=== PATIENT | male | born 1990 | race Caucasian/White ===

== ENCOUNTER 2018-02-25 07:59 | Emergency (ER) | payer MEDICAID ==
--- NOTE | 2018-02-25 08:40 | ED Physician Chart ---
ED Chief Complaint/HPI - Patient Information Date Seen:: 02/25/18 Time Seen:: 08:34 Chief Complaint:: rt sided upper rib cage pain History of Present Illness:: 28 yr old male with asthma cough and phlegm trying to cough it up with pain rt upper rib cage area hx of same with pulled muscle rib cage according to the mom no fever no cp no abd pain no n,v,d or constipation he has hx of asthma and the inhalers etc not working well pain is worse with coughing and deep breathing. Allergies:: Allergies Allergy/AdvReac Type Severity Reaction Status Date / Time naproxen [From Aleve] Allergy Verified 02/25/18 08:07 Vitals:: Vital Signs - 8 hr 02/25/18 08:07 Temp 97.0 F HR 97 RR 18 BP 143/93 O2 Sat % 95 Historian:: Patient, Family Member (mom) ED Review of Systems - Review of Systems General/Constitutional: No fever, No chills, No weight loss, No weakness, No diaphoresis, No edema, No loss of appetite Skin: No skin lesions, No rash, No bruising Head: No headache, No light-headedness Eyes: No loss of vision, No pain, No diplopia ENT: No earache, No nasal drainage, No sore throat, No tinnitus Neck: No neck pain, No swelling, No thyromegaly, No stiffness, No mass noted Cardio Vascular: No chest pain, No palpitations, No PND, No orthopnea, No edema Pulmonary: No SOB, No cough, No sputum, No wheezing GI: No nausea, No vomiting, No diarrhea, No pain, No melena, No hematochezia, No constipation, No hematemesis G/U: No dysuria, No frequency, No hematuria Musculoskeletal: Other (rt sided rib cage scapular pain with deep breathing) Endocrine: No polyuria, No polydipsia Psychiatric: No prior psych history, No depression, No anxiety, No suicidal ideation Hematopoietic: No bruising, No lymphadenopathy Allergic/Immuno: No urticaria, No angioedema Neurological: No syncope, No focal symptoms, No weakness, No paresthesia, No headache, No seizure, No dizziness, No confusion, No vertigo ED Past Medical History - Past Medical History Past Medical History: Asthma/COPD Social History: Non Smoker ED Physical Exam - Physical Examination Other Respiratory comments:: rt sided rib cage pain with deep breathing mild rhonchi occas wheeze Misc: No paraspinal tenderness Other:: tenderness rt rib cage area ED Assessment - Assessment General Assessment: sided rib cage tend with deep breathing ED Septic Shock - . Is Septic Shock (SBP<90, OR Lactate>4 mmol\L) present?: No - <6hrs of presentation: Vital Signs: Vital Signs - 8 hr 02/25/18 08:07 Temp 97.0 F HR 97 RR 18 BP 143/93 O2 Sat % 95 ED Reassessment (Disposition) - Reassessment Reassessment Condition:: Unchanged - Diagnosis Diagnosis:: rt sided upper chest wall pain and bronchitis
[2018-02-25 08:52] LABS: % BASOPHILS 0.7 % (0.0-2.0); % EOSINOPHILS 1.8 % (0.0-5.0); % LYMPHOCYTES 18.8 % (20.0-50.0); % MONOCYTES 3.6 % (2.0-10.0); % NEUTROPHILS 75.1 % (40.0-80.0); BASOPHILE ABSOLUTE 0.1 Th/cumm (0-0.2); EOSINOPHILE ABSOLUTE 0.2 Th/cmm (0.1-0.4); HEMATOCRIT 46.9 % (41.0-60); HEMOGLOBIN 15.7 gm/dL (12-16); LYMPHOCYTE ABSOLUTE 2.4 Th/cmm (1.5-3.0); MEAN CORPUSCULAR HEMOGLOBIN 28.1 pg (26.0-30.0); MEAN CORPUSCULAR HGB CONC 33.5 pg (28.0-36.0); MEAN PLATELET VOLUME 8.5 fl; MONOCYTE ABSOLUTE 0.5 Th/cmm (0.3-1.0); NEUTROPHILE ABSOLUTE 9.6 Th/cmm (1.8-8.0); PLATELET COUNT 281 Th/cmm (150-400); RED BLOOD COUNT 5.58 Mil/cmm (4.30-5.70); RED CELL DISTRIBUTION WIDTH 13.5 % (11.5-20.0)
[2018-02-25 08:54] LABS: WHITE BLOOD COUNT 12.8 Th/cmm (4.8-10.8)
[2018-02-25] MEDS ORDERED: Sodium Chloride 0.9% 1,000 ML IV ONE (09:01)
[2018-02-25 09:03] LABS: ALBUMIN 3.9 gm/dL (4.2-5.5); ALKALINE PHOSPHATASE 82 U/L (34-104); ANION GAP 13.5 (7.0-16.0); BILIRUBIN,TOTAL 0.8 mg/dL (0.3-1.0); BUN - UREA NITROGEN 13 mg/dL (7-25); CALCIUM SERUM 9.1 mg/dL (8.6-10.3); CARBON DIOXIDE 20.9 mEq/L (21.0-31.0); CHLORIDE 107 mEq/L (98-107); CREATININE - SERUM 0.9 mg/dL (0.7-1.3); GFR AFRICAN-AMERICAN > 60.0 ml/min (>90); GFR NON AFRICAN-AMERICAN > 60.0 ml/min; GLUCOSE 133 mg/dL (70-105); POTASSIUM SERUM 3.4 mEq/L (3.5-5.1); SGOT 13 U/L (13-39); SGPT/ALT 15 U/L (7-52); SODIUM SERUM 138 mEq/L (136-145); TOTAL PROTEIN,SERUM 7.7 gm/dL (6.0-8.3)
[2018-02-25] MEDS ORDERED: Dexamethasone Sodium Phos 4 mg/mL Vial INH STA (09:05)
[2018-02-25] MEDS ORDERED: Albuterol/Ipratropium Neb 3 ML AERS HHN ONE ×4 (09:05→10:30)
[2018-02-25 09:07] LABS: INR 0.99 (0.5-1.4); PROTHROMBIN TIME (TEST) 10.3 SECONDS (9.5-11.5)
[2018-02-25] MEDS ORDERED: Albuterol Nebulizer 2.5mg/3mL HHN ONE (09:11)
[2018-02-25] MEDS ORDERED: Potassium Chloride 20 mEq ER Tab PO ONE ×2 (09:11→09:32)
[2018-02-25 09:30] LABS: URINE MICROSCOPIC INDICATED? YES; URINE SOURCE CLEAN C
[2018-02-25 09:37] LABS: URINE BILIRUBIN NEGATIVE (NEGATIVE); URINE BLOOD NEGATIVE (NEGATIVE); URINE GLUCOSE (UA) NEGATIVE (NEGATIVE); URINE KETONE NEGATIVE (NEGATIVE); URINE LEUKOCYTE ESTERASE NEGATIVE (NEGATIVE); URINE NITRATE NEGATIVE (NEGATIVE); URINE PROTEIN NEGATIVE (NEGATIVE); URINE UROBILINOGEN 0.2 E.U./dL (0.2 - 1.0)
[2018-02-25 09:38] LABS: URINE CLARITY CLEAR (CLEAR); URINE COLOR YELLOW
[2018-02-25 09:48] LABS: URINE BACTERIA FEW /hpf (NONE SEEN); URINE EPITHELIAL CELLS OCCASIONAL /lpf (FEW); URINE RBC NONE SEEN /hpf (0-5); URINE WBC 0-2 /hpf (0-5)
[2018-02-25] MEDS ORDERED: Dexamethasone Sodium Phos 4 mg/mL Vial ONE (10:01)
--- NOTE | 2018-02-25 10:19 | Diagnostic Imaging Report ---
Chest x-ray 2 views HISTORY: Pain COMPARISON: None The overall heart size is normal. No focal pulmonary processes. No hilar or mediastinal abnormalities. IMPRESSION: No acute abnormalities.
== END 2018-02-25 11:16 | disposition home or self-care (01) ==
LOC: ER 07:59
DX: J40 Bronchitis, not specified as acute or chronic (principal); R07.89 Other chest pain; J45.909 Unspecified asthma, uncomplicated; J44.9 Chronic obstructive pulmonary disease, unspecified; Z88.8 Allergy status to other drugs, medicaments and biological substances
CPT/HCPCS: 99285; 96365; 71046; 36415; 83605 ×2; 85025; 85610; 81001; 80053; 87040; J2543; J1100; J7030; J7613

== ENCOUNTER 2018-03-19 07:40 | Inpatient (IN) | payer MEDICAID ==
[2018-03-19] MEDS ORDERED: Sodium Chloride 0.9% 1,000 ML IV ONE (07:45)
[2018-03-19 08:09] LABS: % BASOPHILS 0.5 % (0.0-2.0); % EOSINOPHILS 2.1 % (0.0-5.0); % MONOCYTES 6.4 % (2.0-10.0); BASOPHILE ABSOLUTE 0.1 Th/cumm (0-0.2); EOSINOPHILE ABSOLUTE 0.3 Th/cmm (0.1-0.4); HEMATOCRIT 47.5 % (41.0-60); HEMOGLOBIN 15.7 gm/dL (12-16); LYMPHOCYTE ABSOLUTE 2.8 Th/cmm (1.5-3.0); MEAN CELL VOLUME 84.6 fl (80-99); MEAN CORPUSCULAR HEMOGLOBIN 27.9 pg (26.0-30.0); MEAN PLATELET VOLUME 8.4 fl; MONOCYTE ABSOLUTE 0.8 Th/cmm (0.3-1.0); NEUTROPHILE ABSOLUTE 8.5 Th/cmm (1.8-8.0); PLATELET COUNT 259 Th/cmm (150-400); RED BLOOD COUNT 5.62 Mil/cmm (4.30-5.70); RED CELL DISTRIBUTION WIDTH 14.2 % (11.5-20.0); WHITE BLOOD COUNT 12.5 Th/cmm (4.8-10.8)
[2018-03-19] MEDS ORDERED: IOHEXOL 300mgI/mL 100 ML VIAL ONE (08:13)
--- NOTE | 2018-03-19 08:22 | ED Physician Chart ---
ED Chief Complaint/HPI - Patient Information Date Seen:: 03/19/18 Time Seen:: 08:00 Chief Complaint:: RIGHT UPPER QUADRANT PAIN History of Present Illness:: THIS IS A 28 YO OBESE MALE WITH RIGHT UPPER QUADRANT PAIN, NAUSEA, VOMITING BUT NO DIARRHEA. HE HAS HAD THIS SAME PAIN IN THE PAST. HE DENIES HYPERTENSION, DIABETES AND HEART DISEASE. HE DRINKS ALCOHOL OCCASIONALLY AND SMOKE THC OCCASIONALLY. HE DENIES HAVING ANY PREVIOUS ABDOMINAL SURGERIES. Allergies:: Allergies Allergy/AdvReac Type Severity Reaction Status Date / Time naproxen [From Aleve] Allergy Verified 02/25/18 08:07 Vitals:: Vital Signs - 8 hr 03/19/18 07:50 Temp 98.3 F HR 85 RR 21 BP 152/91 O2 Sat % 97 Historian:: Patient, Family Member (MOTHER) Review:: Nurse's Note Reviewed, Old Chart Reviewed ED Review of Systems - Review of Systems General/Constitutional: No fever, No chills, No weight loss, No weakness, No diaphoresis, No edema, No loss of appetite Skin: No skin lesions, No rash, No bruising Head: No headache, No light-headedness Eyes: No loss of vision, No pain, No diplopia ENT: No earache, No nasal drainage, No sore throat, No tinnitus Neck: No neck pain, No swelling, No thyromegaly, No stiffness, No mass noted Cardio Vascular: No chest pain, No palpitations, No PND, No orthopnea, No edema Pulmonary: No SOB, No cough, No sputum, No wheezing GI: Nausea, Vomiting, No diarrhea, Pain (RIGHT UPPER QUADRANT PAIN.), No melena , No hematochezia, No constipation, No hematemesis G/U: No dysuria, No frequency, No hematuria Musculoskeletal: No bone or joint pain, No back pain, No muscle pain Endocrine: No polyuria, No polydipsia Psychiatric: No prior psych history, No depression, No anxiety, No suicidal ideation Hematopoietic: No bruising, No lymphadenopathy Allergic/Immuno: No urticaria, No angioedema Neurological: No syncope, No focal symptoms, No weakness, No paresthesia, No headache, No seizure, No dizziness, No confusion, No vertigo ED Past Medical History - Past Medical History Obtainable: Yes Past Medical History: No significant medical hx Family History: None Social History: Smoker, Alcohol, No Drug Use, Single Surgical History: None Psychiatricy History: None Medication: Reviewed ED Physical Exam - Physical Examination General/Constitutional: Awake, Well-developed, well-nourished, Alert, No distress, GCS 15, Non-toxic appearing, Ambulatory Head: Atraumatic Eyes: Lids, conjuctiva normal, PERRL, EOMI Skin: Nl inspection, No rash, No skin lesions, No ecchymosis, Well hydrated, No lymphadenopathy ENMT: External ears, nose nl, Nasal exam nl, Lips, teeth, gums nl Neck: Nontender, Full ROM w/o pain, No JVD, No nuchal rigidity, No bruit, No mass, No stridor Respiratory: Nl effort/Exclusion, Clear to Auscultation, No Wheeze/Rhonchi/Rales Cardio Vascular: RRR, No murmur, gallop, rubs, NL S1 S2 GI: No tenderness/rebounding/guarding (RIGHT UPPER QUADRANT TENDERNESS WITH REBOUND), No organomegaly, No hernia, Normal BS's, Nondistended, No mass/bruits , No McBurney tenderness : No CVA tenderness Extremities: No tenderness or effusion, Full ROM, normal strength in all extremities, No edema, Normal digits & nails Neuro/Psych: Alert/oriented, DTR's symmetric, Normal sensory exam, Normal motor strength, Judgement/insight normal, Mood normal, Normal gait, No focal deficits Misc: Normal back, No paraspinal tenderness ED Labs/Radiology/EKG Results - Lab Results Results: Laboratory Tests 03/19/18 07:58 WBC 12.5 H RBC 5.62 Hgb 15.7 Hct 47.5 MCV 84.6 MCH 27.9 MCHC Differential 33.0 RDW 14.2 Plt Count 259 MPV 8.4 Neutrophils % 69.0 Lymphocytes % 22.0 Monocytes % 6.4 Eosinophils % 2.1 Basophils % 0.5 - Radiology Results Results: CT SCAN OF THE ABDOMEN = DISTENDED GALLBLADDER WITH A STONE IN THE NECK. Comments:: ultrasound of the gallbladder = stones in the neck of the gallbladder. ED Assessment - Assessment General Assessment: GALLBLADDER DISEASE ED Septic Shock - . Is Septic Shock (SBP<90, OR Lactate>4 mmol\L) present?: No - <6hrs of presentation: Vital Signs: Vital Signs - 8 hr 03/19/18 07:50 Temp 98.3 F HR 85 RR 21 BP 152/91 O2 Sat % 97 ED Reassessment (Disposition) - Reassessment Reassessment Condition:: Improved - Diagnosis Diagnosis:: ACUTE GALLBLADDER DISEASE - Patient Disposition Discharge/Transfer:: Acute Care w/in this hosp Admitting Medical Physician:: Magdi Noonan Condition at Disposition:: Improved ED Discharge Plan - Patient Disposition Admit/Discharge/Transfer: Acute Care w/in this hosp Condition at Disposition: Improved
[2018-03-19 08:26] LABS: ALB/GLOB RATIO 1.4 (1.0-1.8); ALBUMIN 4.2 gm/dL (4.2-5.5); ALKALINE PHOSPHATASE 85 U/L (34-104); ANION GAP 9.6 (7.0-16.0); BILIRUBIN,TOTAL 0.8 mg/dL (0.3-1.0); BUN - UREA NITROGEN 17 mg/dL (7-25); CALCIUM SERUM 9.4 mg/dL (8.6-10.3); CARBON DIOXIDE 24.2 mEq/L (21.0-31.0); CHLORIDE 108 mEq/L (98-107); CREATININE - SERUM 1.1 mg/dL (0.7-1.3); GFR AFRICAN-AMERICAN > 60.0 ml/min (>90); GFR NON AFRICAN-AMERICAN > 60.0 ml/min; GLUCOSE 120 mg/dL (70-105); POTASSIUM SERUM 3.8 mEq/L (3.5-5.1); SGOT 17 U/L (13-39); SGPT/ALT 25 U/L (7-52); SODIUM SERUM 138 mEq/L (136-145); TOTAL PROTEIN,SERUM 7.3 gm/dL (6.0-8.3)
[2018-03-19 08:27] LABS: AMYLASE SERUM 33 U/L (29-103); LIPASE 21 U/L (11-82)
--- NOTE | 2018-03-19 09:37 | Diagnostic Imaging Report ---
CT abdomen and pelvis with intravenous contrast Indication: Abdominal pain Comparison: None, Technique: Axial images were obtained from the lung bases to the bilateral proximal femurs with IV contrast. Coronal reconstructions were made. total DLP: 973, CTDI18.4 FINDINGS: Hypoventilatory and atelectatic changes of the lungs are noted. No evidence of focal hepatic lesions. Distended gallbladder is noted. There appears to be a stone along the gallbladder neck measuring 2 cm. Minimal prominence of the gallbladder wall is noted. No focal splenic lesions. Limited assessment of pancreas demonstrates no obvious focal lesions. No focal adrenal lesions. Multiple bilateral nonobstructive renal stones are noted. 2 mm prostate calcification is noted. Distended urinary bladder is noted. Moderate stool is noted. No evidence of appendicitis. Minimal haziness of the mesenteric fat planes is noted. No free air or free fluid. Old left lower rib fractures are noted. IMPRESSION: 2 cm gallstone in region of gallbladder neck with distended gallbladder. There is suggestion of minimal prominence of the gallbladder wall. Recommend further assessment with ultrasound. Numerous nonobstructive bilateral renal calculi. Minimal haziness of the mesentery. Inflammatory process cannot be excluded. Distended urinary bladder.
[2018-03-19] MEDS ORDERED: Morphine Sulfate 2 mg/mL 1mL Syr IVP PRN (11:02)
--- NOTE | 2018-03-19 11:16 | Diagnostic Imaging Report ---
Ultrasound abdomen limited History: Gallstones Comparison: CT abdomen and pelvis the same day Technique/procedure: Sonography of the right upper quadrant was performed in multiple planes. The liver demonstrates increased echogenicity and measures 20.6 cm. The liver margin is not well-defined, however, no obvious focal lesions. There is a stone within the gallbladder neck measuring 1.6 cm. The gallbladder wall measures 3 mm. The common bile duct measures 2 mm. Evaluation of pancreas is limited due to bowel gas. The right kidney measures 13.6 cm. No obvious hydronephrosis. IMPRESSION: 1.6 cm stone within the gallbladder neck. No evidence of gallbladder wall thickening or pericholecystic fluid. Clinical correlation recommended Increased echogenicity of the liver which may be due to underlying fatty infiltration. Mild hepatomegaly is also noted. Mildly increased right renal size. No evidence of hydronephrosis.
[2018-03-19 12:18] LABS: URINE MICROSCOPIC INDICATED? YES; URINE SOURCE CLEAN C
[2018-03-19] MEDS: D5-0.45NS 1,000 ML IV SCH (12:21)
[2018-03-19 12:26] LABS: AMPHETAMINE URINE NEGATIVE (NEGATIVE); BARBITURATES URINE NEGATIVE (NEGATIVE); BENZODIAZEPINES QUAL URINE NEGATIVE (NEGATIVE); CANNABINOID THC POSITIVE (NEGATIVE); COCAINE METABOLITE QUAL URINE NEGATIVE (NEGATIVE); PHENCYCLIDINE (PCP) URINE NEGATIVE (NEGATIVE)
[2018-03-19 12:27] LABS: METHADONE URINE NEGATIVE (NEGATIVE); METHAMPHETAMINES QUAL URINE NEGATIVE (NEGATIVE); OPIATES (MORPHINE) QUAL. URINE NEGATIVE (NEGATIVE); TRICYCLICS (TCA) QUAL. URINE NEGATIVE (NEGATIVE)
[2018-03-19 12:33] LABS: URINE BILIRUBIN NEGATIVE (NEGATIVE); URINE BLOOD NEGATIVE (NEGATIVE); URINE GLUCOSE (UA) NEGATIVE (NEGATIVE); URINE KETONE NEGATIVE (NEGATIVE); URINE LEUKOCYTE ESTERASE NEGATIVE (NEGATIVE); URINE NITRATE NEGATIVE (NEGATIVE); URINE PROTEIN NEGATIVE (NEGATIVE); URINE UROBILINOGEN 0.2 E.U./dL (0.2 - 1.0)
[2018-03-19 12:40] LABS: URINE CLARITY CLEAR (CLEAR); URINE COLOR YELLOW
[2018-03-19 12:41] LABS: URINE BACTERIA OCCASIONAL /hpf (NONE SEEN); URINE EPITHELIAL CELLS FEW /lpf (FEW); URINE RBC 0-2 /hpf (0-5)
[2018-03-19] MEDS: Ampicillin Sodium/Sulbactam 3 GM in Sodium Chloride 0.9% 100 ML IV SCH ×3 (12:41→23:22)
[2018-03-19 13:06] VITALS: BP 121/79
[2018-03-19] MEDS ORDERED: Pneumococcal Vaccine 0.5 mL Vial IM ONE (14:47)
[2018-03-19] MEDS ORDERED: Albuterol Nebulizer 2.5mg/3mL HHN PRN (21:42)
--- NOTE | 2018-03-19 23:44 | Consultation ---
DATE OF CONSULTATION: 03/19/2018 INPATIENT GASTROINTESTINAL CONSULTATION REFERRING PHYSICIAN: Dr. Noonan. REASON FOR CONSULTATION: Gallstones. HISTORY OF PRESENT ILLNESS: This is a 28-year-old male complaining of one day epigastric right upper quadrant pain, not associated with any nausea or vomiting. Denies having any change in bowel habits. Denies nausea, vomiting, diarrhea, constipation, melena, hematochezia, hematemesis, or coffee ground emesis. PAST MEDICAL HISTORY: None. PAST SURGICAL HISTORY: None to abdomen. FAMILY HISTORY: Noncontributory. SOCIAL HISTORY: No tobacco, alcohol or IV drug usage. ALLERGIES: NAPROXEN. CURRENT MEDICATIONS: Ampicillin, sulbactam, IV fluids, morphine. REVIEW OF SYSTEMS: Ten point review of system was performed and the pertinent positive was the epigastric right upper quadrant pain. All systems were otherwise negative. LABORATORY DATA: 12.5, hemoglobin 15.7, platelets of 259. Total bilirubin 0.8, AST 17, ALT 25, alkaline phosphatase 85, lipase 21. CT abdomen and pelvis showed a 2 cm gallstone in the gallbladder neck. Abdominal ultrasound showed gallstone in the gallbladder neck. Fatty liver. IMPRESSION: A 28-year-old male with symptomatic gallstones, location at the gallbladder neck. LFTs were within normal limits as well as lipase. The patient will likely benefit from having cholecystectomy. There are no GI procedures at this point to remove stones in the gallbladder neck. PLAN: 1. Cholecystectomy per surgeon. 2. Surgical consult per PCP. 3. Continue supportive care. Thank you for allowing me to participate. Please call me if any questions. JOB# [id number]
[2018-03-20 05:10] LABS: % BASOPHILS 0.5 % (0.0-2.0); % EOSINOPHILS 1.9 % (0.0-5.0); % MONOCYTES 6.7 % (2.0-10.0); % NEUTROPHILS 63.9 % (40.0-80.0); BASOPHILE ABSOLUTE 0.1 Th/cumm (0-0.2); EOSINOPHILE ABSOLUTE 0.2 Th/cmm (0.1-0.4); HEMATOCRIT 48.7 % (41.0-60); HEMOGLOBIN 16.3 gm/dL (12-16); LYMPHOCYTE ABSOLUTE 3.2 Th/cmm (1.5-3.0); MEAN CELL VOLUME 84.8 fl (80-99); MEAN CORPUSCULAR HEMOGLOBIN 28.3 pg (26.0-30.0); MEAN CORPUSCULAR HGB CONC 33.4 pg (28.0-36.0); MEAN PLATELET VOLUME 8.5 fl; MONOCYTE ABSOLUTE 0.8 Th/cmm (0.3-1.0); NEUTROPHILE ABSOLUTE 7.5 Th/cmm (1.8-8.0); PLATELET COUNT 262 Th/cmm (150-400); RED BLOOD COUNT 5.74 Mil/cmm (4.30-5.70); RED CELL DISTRIBUTION WIDTH 14.4 % (11.5-20.0); WHITE BLOOD COUNT 11.8 Th/cmm (4.8-10.8)
[2018-03-20] MEDS: D5-0.45NS 1,000 ML IV SCH ×2 (05:11→17:19)
[2018-03-20] MEDS: Ampicillin Sodium/Sulbactam 3 GM in Sodium Chloride 0.9% 100 ML IV SCH ×4 (05:12→23:53)
[2018-03-20 05:35] LABS: ALB/GLOB RATIO 1.3 (1.0-1.8); ALBUMIN 4.2 gm/dL (4.2-5.5); ALKALINE PHOSPHATASE 80 U/L (34-104); AMYLASE SERUM 33 U/L (29-103); ANION GAP 10.1 (7.0-16.0); BILIRUBIN,TOTAL 1.1 mg/dL (0.3-1.0); BUN - UREA NITROGEN 12 mg/dL (7-25); CALCIUM SERUM 9.2 mg/dL (8.6-10.3); CARBON DIOXIDE 27.5 mEq/L (21.0-31.0); CHLORIDE 105 mEq/L (98-107); GFR AFRICAN-AMERICAN > 60.0 ml/min (>90); GFR NON AFRICAN-AMERICAN > 60.0 ml/min; GLUCOSE 93 mg/dL (70-105); LIPASE 19 U/L (11-82); POTASSIUM SERUM 3.6 mEq/L (3.5-5.1); SGOT 18 U/L (13-39); SGPT/ALT 24 U/L (7-52); SODIUM SERUM 139 mEq/L (136-145); TOTAL PROTEIN,SERUM 7.4 gm/dL (6.0-8.3)
[2018-03-20 05:38] LABS: INR 0.99 (0.5-1.4); PROTHROMBIN TIME (TEST) 10.3 SECONDS (9.5-11.5)
--- NOTE | 2018-03-20 07:44 | GI Progress Note ---
Subjective - Review of Systems Subjective: NO EVENTS Objective - Results Result Diagrams: 03/20/18 04:45 03/20/18 04:45 Recent Labs: Laboratory Last Values WBC 11.8 Th/cmm (4.8-10.8) H 03/20/18 04:45 RBC 5.74 Mil/cmm (4.30-5.70) H 03/20/18 04:45 Hgb 16.3 gm/dL (12-16) 03/20/18 04:45 Hct 48.7 % (41.0-60) 03/20/18 04:45 MCV 84.8 fl (80-99) 03/20/18 04:45 MCH 28.3 pg (26.0-30.0) 03/20/18 04:45 MCHC Differential 33.4 pg (28.0-36.0) 03/20/18 04:45 RDW 14.4 % (11.5-20.0) 03/20/18 04:45 Plt Count 262 Th/cmm (150-400) 03/20/18 04:45 MPV 8.5 fl 03/20/18 04:45 Neutrophils % 63.9 % (40.0-80.0) 03/20/18 04:45 Lymphocytes % 27.0 % (20.0-50.0) 03/20/18 04:45 Monocytes % 6.7 % (2.0-10.0) 03/20/18 04:45 Eosinophils % 1.9 % (0.0-5.0) 03/20/18 04:45 Basophils % 0.5 % (0.0-2.0) 03/20/18 04:45 PT 10.3 SECONDS (9.5-11.5) 03/20/18 04:45 INR 0.99 (0.5-1.4) 03/20/18 04:45 PTT (Actin FS) 28.4 SECONDS (26.0-38.0) 03/20/18 04:45 Sodium 139 mEq/L (136-145) 03/20/18 04:45 Potassium 3.6 mEq/L (3.5-5.1) 03/20/18 04:45 Chloride 105 mEq/L (98-107) 03/20/18 04:45 Carbon Dioxide 27.5 mEq/L (21.0-31.0) 03/20/18 04:45 Anion Gap 10.1 (7.0-16.0) 03/20/18 04:45 BUN 12 mg/dL (7-25) 03/20/18 04:45 Creatinine 1.0 mg/dL (0.7-1.3) 03/20/18 04:45 Est GFR ( Amer) > 60.0 ml/min (>90) 03/20/18 04:45 Est GFR (Non-Af Amer) > 60.0 ml/min 03/20/18 04:45 BUN/Creatinine Ratio 12.0 03/20/18 04:45 Glucose 93 mg/dL (70-105) 03/20/18 04:45 Calcium 9.2 mg/dL (8.6-10.3) 03/20/18 04:45 Total Bilirubin 1.1 mg/dL (0.3-1.0) H 03/20/18 04:45 AST 18 U/L (13-39) 03/20/18 04:45 ALT 24 U/L (7-52) 03/20/18 04:45 Alkaline Phosphatase 80 U/L (34-104) 03/20/18 04:45 Total Protein 7.4 gm/dL (6.0-8.3) 03/20/18 04:45 Albumin 4.2 gm/dL (4.2-5.5) 03/20/18 04:45 Globulin 3.2 gm/dL 03/20/18 04:45 Albumin/Globulin Ratio 1.3 (1.0-1.8) 03/20/18 04:45 Amylase 33 U/L (29-103) 03/20/18 04:45 Lipase 19 U/L (11-82) 03/20/18 04:45 Urine Source CLEAN C 03/19/18 10:54 Urine Color YELLOW 03/19/18 10:54 Urine Clarity CLEAR (CLEAR) 03/19/18 10:54 Urine pH 7.0 (4.6 - 8.0) 03/19/18 10:54 Ur Specific [place] 1.010 (1.005-1.030) 03/19/18 10:54 Urine Protein NEGATIVE mg/dL (NEGATIVE) 03/19/18 10:54 Urine Glucose (UA) NEGATIVE mg/dL (NEGATIVE) 03/19/18 10:54 Urine Ketones NEGATIVE mg/dL (NEGATIVE) 03/19/18 10:54 Urine Blood NEGATIVE (NEGATIVE) 03/19/18 10:54 Urine Nitrate NEGATIVE (NEGATIVE) 03/19/18 10:54 Urine Bilirubin NEGATIVE (NEGATIVE) 03/19/18 10:54 Urine Urobilinogen 0.2 E.U./dL (0.2 - 1.0) 03/19/18 10:54 Ur Leukocyte Esterase NEGATIVE (NEGATIVE) 03/19/18 10:54 Urine RBC 0-2 /hpf (0-5) H 03/19/18 10:54 Urine WBC 2-5 /hpf (0-5) 03/19/18 10:54 Ur Epithelial Cells FEW /lpf (FEW) 03/19/18 10:54 Urine Bacteria OCCASIONAL /hpf (NONE SEEN) 03/19/18 10:54 Urine Opiates Screen NEGATIVE (NEGATIVE) 03/19/18 10:52 Urine Methadone Screen NEGATIVE (NEGATIVE) 03/19/18 10:52 Ur Barbiturates Screen NEGATIVE (NEGATIVE) 03/19/18 10:52 Ur Tricyclics Screen NEGATIVE (NEGATIVE) 03/19/18 10:52 Ur Phencyclidine Scrn NEGATIVE (NEGATIVE) 03/19/18 10:52 Amphetamines Screen NEGATIVE (NEGATIVE) 03/19/18 10:52 U Methamphetamines Scrn NEGATIVE (NEGATIVE) 03/19/18 10:52 U Benzodiazepines Scrn NEGATIVE (NEGATIVE) 03/19/18 10:52 U Cocaine Metab Screen NEGATIVE (NEGATIVE) 03/19/18 10:52 U Cannabinoids Screen POSITIVE (NEGATIVE) H 03/19/18 10:52 - Physical Exam Vitals and I&O: Vital Signs Temp 97.2 F 03/20/18 00:00 Pulse 65 03/20/18 00:00 Resp 19 03/20/18 00:00 BP 121/79 03/19/18 14:44 Pulse Ox 95 03/20/18 00:00 Intake & Output 03/19/18 03/20/18 03/20/18 18:59 06:59 18:59 Intake Total 1840 462 Balance 1840 462 Weight (lbs) 161.434 kg 161.434 kg Intake: Intake, IV Amount 1840 460 Ampicillin Sodium/ 200 100 Sulbactam 3 gm In Sodium Chloride 0.9% 100 ml @ 100 mls/hr IV Q6HR [facility] Rx #:[id number] D5-0.45NS 1,000 ml @ 100 640 360 mls/hr IV .Q10H [facility] Rx#: [id number] Sodium Chloride 0.9% 1, 1000 000 ml @ Wide Open IV . Q0M ONE Rx#:[id number] Oral 2 Other: # Voids 2 # Bowel Movements 0 Weight Source Bedscale Bedscale Active Medications: Current Medications Dextrose/Sodium Chloride (D5-0.45ns) 1,000 mls @ 100 mls/hr IV .Q10H [facility] Stop: 05/18/18 10:59 Last Admin: 03/20/18 05:11 Dose: 100 mls/hr Ampicillin Sodium/Sulbactam (Sodium 3 gm/ Sodium Chloride) 100 mls @ 100 mls/ hr IV Q6HR [facility] Stop: 05/18/18 11:59 Last Admin: 03/20/18 05:12 Dose: 100 mls/hr Miscellaneous (Albuterol Sulfate [Ventolin Hfa]) 1 puff IH PRN PRN PRN Reason: asthma Morphine Sulfate (Morphine) 2 mg IVP Q6H PRN PRN Reason: Abdominal Pain Stop: 05/18/18 11:01 Assessment/Plan - Problem List Patient Problems: All Active Problems RIGHT UPPER QUADRANT PAIN (Acute) - Assessment Assessment: 28 YO MALE WITH GALLSTONE DISEASE THAT IS SYMPTOMATIC LFTS ARE NORMAL 1.SURGERY EVAL 2.CONSIDER HIDA
--- NOTE | 2018-03-20 09:59 | Consultation ---
DATE OF CONSULTATION: 03/20/2018 SURGICAL CONSULT REFERRING PHYSICIAN: Dr. Noonan. REASON FOR CONSULTATION: Abdominal pain. Thank you for referring this patient to me. This is a 28-year-old morbidly obese male who comes in because of nausea, vomiting and diarrhea. This happened in the past 24 hours. He claims that a year ago he was diagnosed with gallstones, but he did not follow up on this. Past history is negative except for obesity. He drinks occasionally and uses marijuana, he claims for sleep most of the time. Laboratory studies on this admission shows the CBC slightly elevated to 12,500. The liver function test was normal on admission, but the total bilirubin has gone up to 1.1 from 0.8 twenty-[address] scan of the abdomen showed a 2 cm gallstone in the gallbladder neck area with distended gallbladder. There are kidney stones present. On ultrasound, the stone is confirmed. There is fatty infiltration of the liver. PHYSICAL EXAMINATION: GENERAL: Shows him to be alert and awake. ABDOMEN: Globular and soft. No tenderness is noted now. LABORATORY AND DIAGNOSTIC DATA: HIDA scan is being done at this point. RECOMMENDATIONS: In view of his extreme obesity, I would not recommend doing surgery at this facility. He needs to go to a place where in the event of surgical equipment need that might require longer instrumentations, etc. He is best referred to another facility. We will follow with you. JOB# [id number]
--- NOTE | 2018-03-20 10:01 | General Progress Note ---
Subjective - Review of Systems Service Date: 03/20/18 Events since last encounter: discussed Ct and US findings with mother because of weight, patient to go to another facility where needed instrumentations are available Objective - Results Result Diagrams: 03/20/18 04:45 03/20/18 04:45 Recent Labs: Laboratory Last Values WBC 11.8 Th/cmm (4.8-10.8) H 03/20/18 04:45 RBC 5.74 Mil/cmm (4.30-5.70) H 03/20/18 04:45 Hgb 16.3 gm/dL (12-16) 03/20/18 04:45 Hct 48.7 % (41.0-60) 03/20/18 04:45 MCV 84.8 fl (80-99) 03/20/18 04:45 MCH 28.3 pg (26.0-30.0) 03/20/18 04:45 MCHC Differential 33.4 pg (28.0-36.0) 03/20/18 04:45 RDW 14.4 % (11.5-20.0) 03/20/18 04:45 Plt Count 262 Th/cmm (150-400) 03/20/18 04:45 MPV 8.5 fl 03/20/18 04:45 Neutrophils % 63.9 % (40.0-80.0) 03/20/18 04:45 Lymphocytes % 27.0 % (20.0-50.0) 03/20/18 04:45 Monocytes % 6.7 % (2.0-10.0) 03/20/18 04:45 Eosinophils % 1.9 % (0.0-5.0) 03/20/18 04:45 Basophils % 0.5 % (0.0-2.0) 03/20/18 04:45 PT 10.3 SECONDS (9.5-11.5) 03/20/18 04:45 INR 0.99 (0.5-1.4) 03/20/18 04:45 PTT (Actin FS) 28.4 SECONDS (26.0-38.0) 03/20/18 04:45 Sodium 139 mEq/L (136-145) 03/20/18 04:45 Potassium 3.6 mEq/L (3.5-5.1) 03/20/18 04:45 Chloride 105 mEq/L (98-107) 03/20/18 04:45 Carbon Dioxide 27.5 mEq/L (21.0-31.0) 03/20/18 04:45 Anion Gap 10.1 (7.0-16.0) 03/20/18 04:45 BUN 12 mg/dL (7-25) 03/20/18 04:45 Creatinine 1.0 mg/dL (0.7-1.3) 03/20/18 04:45 Est GFR ( Amer) > 60.0 ml/min (>90) 03/20/18 04:45 Est GFR (Non-Af Amer) > 60.0 ml/min 03/20/18 04:45 BUN/Creatinine Ratio 12.0 03/20/18 04:45 Glucose 93 mg/dL (70-105) 03/20/18 04:45 Calcium 9.2 mg/dL (8.6-10.3) 03/20/18 04:45 Total Bilirubin 1.1 mg/dL (0.3-1.0) H 03/20/18 04:45 AST 18 U/L (13-39) 03/20/18 04:45 ALT 24 U/L (7-52) 03/20/18 04:45 Alkaline Phosphatase 80 U/L (34-104) 03/20/18 04:45 Total Protein 7.4 gm/dL (6.0-8.3) 03/20/18 04:45 Albumin 4.2 gm/dL (4.2-5.5) 03/20/18 04:45 Globulin 3.2 gm/dL 03/20/18 04:45 Albumin/Globulin Ratio 1.3 (1.0-1.8) 03/20/18 04:45 Amylase 33 U/L (29-103) 03/20/18 04:45 Lipase 19 U/L (11-82) 03/20/18 04:45 Urine Source CLEAN C 03/19/18 10:54 Urine Color YELLOW 03/19/18 10:54 Urine Clarity CLEAR (CLEAR) 03/19/18 10:54 Urine pH 7.0 (4.6 - 8.0) 03/19/18 10:54 Ur Specific [place] 1.010 (1.005-1.030) 03/19/18 10:54 Urine Protein NEGATIVE mg/dL (NEGATIVE) 03/19/18 10:54 Urine Glucose (UA) NEGATIVE mg/dL (NEGATIVE) 03/19/18 10:54 Urine Ketones NEGATIVE mg/dL (NEGATIVE) 03/19/18 10:54 Urine Blood NEGATIVE (NEGATIVE) 03/19/18 10:54 Urine Nitrate NEGATIVE (NEGATIVE) 03/19/18 10:54 Urine Bilirubin NEGATIVE (NEGATIVE) 03/19/18 10:54 Urine Urobilinogen 0.2 E.U./dL (0.2 - 1.0) 03/19/18 10:54 Ur Leukocyte Esterase NEGATIVE (NEGATIVE) 03/19/18 10:54 Urine RBC 0-2 /hpf (0-5) H 03/19/18 10:54 Urine WBC 2-5 /hpf (0-5) 03/19/18 10:54 Ur Epithelial Cells FEW /lpf (FEW) 03/19/18 10:54 Urine Bacteria OCCASIONAL /hpf (NONE SEEN) 03/19/18 10:54 Urine Opiates Screen NEGATIVE (NEGATIVE) 03/19/18 10:52 Urine Methadone Screen NEGATIVE (NEGATIVE) 03/19/18 10:52 Ur Barbiturates Screen NEGATIVE (NEGATIVE) 03/19/18 10:52 Ur Tricyclics Screen NEGATIVE (NEGATIVE) 03/19/18 10:52 Ur Phencyclidine Scrn NEGATIVE (NEGATIVE) 03/19/18 10:52 Amphetamines Screen NEGATIVE (NEGATIVE) 03/19/18 10:52 U Methamphetamines Scrn NEGATIVE (NEGATIVE) 03/19/18 10:52 U Benzodiazepines Scrn NEGATIVE (NEGATIVE) 03/19/18 10:52 U Cocaine Metab Screen NEGATIVE (NEGATIVE) 03/19/18 10:52 U Cannabinoids Screen POSITIVE (NEGATIVE) H 03/19/18 10:52 - Physical Exam Vitals and I&O: Vital Signs Temp 96.8 F 03/20/18 08:00 Pulse 69 03/20/18 08:00 Resp 19 03/20/18 08:00 BP 120/79 03/20/18 08:00 Pulse Ox 96 03/20/18 08:00 Intake & Output 03/19/18 03/20/18 03/20/18 18:59 06:59 18:59 Intake Total 1840 462 Balance 1840 462 Weight (lbs) 161.434 kg 161.434 kg Intake: Intake, IV Amount 1840 460 Ampicillin Sodium/ 200 100 Sulbactam 3 gm In Sodium Chloride 0.9% 100 ml @ 100 mls/hr IV Q6HR [facility] Rx #:[id number] D5-0.45NS 1,000 ml @ 100 640 360 mls/hr IV .Q10H [facility] Rx#: [id number] Sodium Chloride 0.9% 1, 1000 000 ml @ Wide Open IV . Q0M ONE Rx#:[id number] Oral 2 Other: # Voids 2 # Bowel Movements 0 Weight Source Bedscale Bedscale Active Medications: Current Medications Dextrose/Sodium Chloride (D5-0.45ns) 1,000 mls @ 100 mls/hr IV .Q10H [facility] Stop: 05/18/18 10:59 Last Admin: 03/20/18 05:11 Dose: 100 mls/hr Ampicillin Sodium/Sulbactam (Sodium 3 gm/ Sodium Chloride) 100 mls @ 100 mls/ hr IV Q6HR [facility] Stop: 05/18/18 11:59 Last Admin: 03/20/18 05:12 Dose: 100 mls/hr Miscellaneous (Albuterol Sulfate [Ventolin Hfa]) 1 puff IH PRN PRN PRN Reason: asthma Morphine Sulfate (Morphine) 2 mg IVP Q6H PRN PRN Reason: Abdominal Pain Stop: 05/18/18 11:01 Assessment/Plan - Problem List Patient Problems: All Active Problems RIGHT UPPER QUADRANT PAIN (Acute)
--- NOTE | 2018-03-20 10:10 | History & Physical ---
ADMIT DATE: PATIENT'S IDENTIFICATION: A 28-year-old male. CHIEF COMPLAINT: Abdominal pain. HISTORY OF PRESENT ILLNESS: A 28-year-old Somali male with known case of gallstones, has not seen any doctor, brought himself to the Emergency Room after the patient was having abdominal discomfort on the upper part of the abdomen. When the patient arrived in the Emergency Room, the patient was noted to have a stone at the gallbladder neck area. The patient has been admitted to the hospital for further treatment. PAST MEDICAL HISTORY: 1. Remarkable for cholelithiasis. 2. Asthma. 3. Obesity. MEDICATIONS AT HOME: Inhalers and Breo Ellipta. ALLERGIES: THE PATIENT IS ALLERGIC TO ALEVE. SOCIAL HISTORY: The patient lives in [facility], works as a lab asst, occasional marijuana use. No alcohol or smoking cigarette. FAMILY MEDICAL HISTORY: Remarkable for diabetes. REVIEW OF SYSTEMS: The patient is currently symptoms free, which included denies any chest pain, shortness of breath, palpitation, dizziness, nausea, vomiting, diarrhea, dysuria, hematuria, hematochezia, melena. No seizure or syncopal episode. PHYSICAL EXAMINATION: GENERAL: Alert, awake, oriented, lying in the bed without any acute distress. VITAL SIGNS: Temperature 96.8, pulse 69, respiratory rate is 18, blood pressure 120/80. SKIN: Warm to touch. HEENT: Normocephalic, atraumatic. Extraocular muscles are intact. Tongue more pink and coated. Poor dentition noted. No oral lesions, no exudate. No sinus tenderness. External auditory canal and tympanic membranes are well visualized. NECK: Supple. No JVD, no hepatojugular reflux. No lymphadenopathy, thyromegaly or carotid bruit. HEART: Both heart sounds are regular. No S3, no S4, no murmur. CHEST AND LUNG: Equal in expansion, no wheezing, no crackles. ABDOMEN: Soft, no guarding, no rigidity. Liver and spleen not palpable. No palpable mass. EXTREMITIES: No edema, no cyanosis or clubbing. Peripheral pulses are +2. No calf tenderness. NEUROLOGIC: Nonfocal. AVAILABLE DIAGNOSTIC DATA: Has been reviewed. IMPRESSION: 1. Right upper quadrant pain secondary to cholelithiasis. 2. Ruled out cholecystitis. 3. Asthma. 4. Obesity. PLAN: 1. Admit this patient to Med/Surg floor. 2. Keep her n.p.o. 3. IV antibiotic. 4. Gastrointestinal and General Surgery consultation. 5. Pain management. 6. Symptoms management. 7. HIDA scan. 8. Follow lab. 9. Follow consult recommendation. 10. Care plan reviewed and discussed with staff. [facility]# [id number]
[2018-03-21] MEDS: Ampicillin Sodium/Sulbactam 3 GM in Sodium Chloride 0.9% 100 ML IV SCH ×4 (05:17→23:31)
[2018-03-21] MEDS: D5-0.45NS 1,000 ML IV SCH ×2 (05:19→17:01)
--- NOTE | 2018-03-21 09:21 | GI Progress Note ---
Subjective - Review of Systems Subjective: NO EVENTS Objective - Results Result Diagrams: 03/20/18 04:45 03/20/18 04:45 Recent Labs: Laboratory Last Values WBC 11.8 Th/cmm (4.8-10.8) H 03/20/18 04:45 RBC 5.74 Mil/cmm (4.30-5.70) H 03/20/18 04:45 Hgb 16.3 gm/dL (12-16) 03/20/18 04:45 Hct 48.7 % (41.0-60) 03/20/18 04:45 MCV 84.8 fl (80-99) 03/20/18 04:45 MCH 28.3 pg (26.0-30.0) 03/20/18 04:45 MCHC Differential 33.4 pg (28.0-36.0) 03/20/18 04:45 RDW 14.4 % (11.5-20.0) 03/20/18 04:45 Plt Count 262 Th/cmm (150-400) 03/20/18 04:45 MPV 8.5 fl 03/20/18 04:45 Neutrophils % 63.9 % (40.0-80.0) 03/20/18 04:45 Lymphocytes % 27.0 % (20.0-50.0) 03/20/18 04:45 Monocytes % 6.7 % (2.0-10.0) 03/20/18 04:45 Eosinophils % 1.9 % (0.0-5.0) 03/20/18 04:45 Basophils % 0.5 % (0.0-2.0) 03/20/18 04:45 PT 10.3 SECONDS (9.5-11.5) 03/20/18 04:45 INR 0.99 (0.5-1.4) 03/20/18 04:45 PTT (Actin FS) 28.4 SECONDS (26.0-38.0) 03/20/18 04:45 Sodium 139 mEq/L (136-145) 03/20/18 04:45 Potassium 3.6 mEq/L (3.5-5.1) 03/20/18 04:45 Chloride 105 mEq/L (98-107) 03/20/18 04:45 Carbon Dioxide 27.5 mEq/L (21.0-31.0) 03/20/18 04:45 Anion Gap 10.1 (7.0-16.0) 03/20/18 04:45 BUN 12 mg/dL (7-25) 03/20/18 04:45 Creatinine 1.0 mg/dL (0.7-1.3) 03/20/18 04:45 Est GFR ( Amer) > 60.0 ml/min (>90) 03/20/18 04:45 Est GFR (Non-Af Amer) > 60.0 ml/min 03/20/18 04:45 BUN/Creatinine Ratio 12.0 03/20/18 04:45 Glucose 93 mg/dL (70-105) 03/20/18 04:45 Calcium 9.2 mg/dL (8.6-10.3) 03/20/18 04:45 Total Bilirubin 1.1 mg/dL (0.3-1.0) H 03/20/18 04:45 AST 18 U/L (13-39) 03/20/18 04:45 ALT 24 U/L (7-52) 03/20/18 04:45 Alkaline Phosphatase 80 U/L (34-104) 03/20/18 04:45 Total Protein 7.4 gm/dL (6.0-8.3) 03/20/18 04:45 Albumin 4.2 gm/dL (4.2-5.5) 03/20/18 04:45 Globulin 3.2 gm/dL 03/20/18 04:45 Albumin/Globulin Ratio 1.3 (1.0-1.8) 03/20/18 04:45 Amylase 33 U/L (29-103) 03/20/18 04:45 Lipase 19 U/L (11-82) 03/20/18 04:45 Urine Source CLEAN C 03/19/18 10:54 Urine Color YELLOW 03/19/18 10:54 Urine Clarity CLEAR (CLEAR) 03/19/18 10:54 Urine pH 7.0 (4.6 - 8.0) 03/19/18 10:54 Ur Specific [place] 1.010 (1.005-1.030) 03/19/18 10:54 Urine Protein NEGATIVE mg/dL (NEGATIVE) 03/19/18 10:54 Urine Glucose (UA) NEGATIVE mg/dL (NEGATIVE) 03/19/18 10:54 Urine Ketones NEGATIVE mg/dL (NEGATIVE) 03/19/18 10:54 Urine Blood NEGATIVE (NEGATIVE) 03/19/18 10:54 Urine Nitrate NEGATIVE (NEGATIVE) 03/19/18 10:54 Urine Bilirubin NEGATIVE (NEGATIVE) 03/19/18 10:54 Urine Urobilinogen 0.2 E.U./dL (0.2 - 1.0) 03/19/18 10:54 Ur Leukocyte Esterase NEGATIVE (NEGATIVE) 03/19/18 10:54 Urine RBC 0-2 /hpf (0-5) H 03/19/18 10:54 Urine WBC 2-5 /hpf (0-5) 03/19/18 10:54 Ur Epithelial Cells FEW /lpf (FEW) 03/19/18 10:54 Urine Bacteria OCCASIONAL /hpf (NONE SEEN) 03/19/18 10:54 Urine Opiates Screen NEGATIVE (NEGATIVE) 03/19/18 10:52 Urine Methadone Screen NEGATIVE (NEGATIVE) 03/19/18 10:52 Ur Barbiturates Screen NEGATIVE (NEGATIVE) 03/19/18 10:52 Ur Tricyclics Screen NEGATIVE (NEGATIVE) 03/19/18 10:52 Ur Phencyclidine Scrn NEGATIVE (NEGATIVE) 03/19/18 10:52 Amphetamines Screen NEGATIVE (NEGATIVE) 03/19/18 10:52 U Methamphetamines Scrn NEGATIVE (NEGATIVE) 03/19/18 10:52 U Benzodiazepines Scrn NEGATIVE (NEGATIVE) 03/19/18 10:52 U Cocaine Metab Screen NEGATIVE (NEGATIVE) 03/19/18 10:52 U Cannabinoids Screen POSITIVE (NEGATIVE) H 03/19/18 10:52 - Physical Exam Vitals and I&O: Vital Signs Temp 97.3 F 03/21/18 07:46 Pulse 63 03/21/18 07:46 Resp 18 03/21/18 08:00 BP 115/75 03/21/18 07:46 Pulse Ox 99 03/21/18 07:46 Intake & Output 03/20/18 03/21/18 03/21/18 18:59 06:59 18:59 Intake Total 1200 1440 Balance 1200 1440 Weight (lbs) 161.434 kg 158.576 kg Intake: Intake, IV Amount 1200 1200 Ampicillin Sodium/ 200 200 Sulbactam 3 gm In Sodium Chloride 0.9% 100 ml @ 100 mls/hr IV Q6HR [facility] Rx #:[id number] D5-0.45NS 1,000 ml @ 100 1000 1000 mls/hr IV .Q10H [facility] Rx#: [id number] Oral 240 Other: # Voids 3 3 # Bowel Movements 0 1 Weight Source Bedscale Bedscale Active Medications: Current Medications Albuterol Sulfate (Albuterol 2.5mg/3ml Neb Ud) 2.5 mg HHN PRN PRN PRN Reason: asthma Dextrose/Sodium Chloride (D5-0.45ns) 1,000 mls @ 100 mls/hr IV .Q10H [facility] Stop: 05/18/18 10:59 Last Admin: 03/21/18 05:19 Dose: 100 mls/hr Ampicillin Sodium/Sulbactam (Sodium 3 gm/ Sodium Chloride) 100 mls @ 100 mls/ hr IV Q6HR JOHN Stop: 05/18/18 11:59 Last Infusion: 03/21/18 06:17 Dose: Infused Morphine Sulfate (Morphine) 2 mg IVP Q6H PRN PRN Reason: Abdominal Pain Stop: 05/18/18 11:01 Assessment/Plan - Problem List Patient Problems: All Active Problems RIGHT UPPER QUADRANT PAIN (Acute) - Assessment Assessment: 28 YO MALE WITH GALLSTONE DISEASE THAT IS SYMPTOMATIC LFTS AND LIPASE WERE NORMAL HIDA SUGGEST CHOLECYSTITIS LIMITED GI OPTIONS SINCE PT ULTIMATELY NEEDS SURGERY 1.SURGERY EVAL FOR TERRIE 2.CONT SUPP CARE 3.WILL SEE NEEDED; CALL IF QUESTIONS
--- NOTE | 2018-03-21 10:33 | Diagnostic Imaging Report ---
Nuclear medicine HIDA scan HISTORY: Pain, assess for possible cholecystitis COMPARISON: CT abdomen and pelvis on 03/19/2019 ultrasound abdomen on 04-04 Technique/procedure: 5.1 mCi of technetium labeled Choletec was administered intravenously and multiple scintigraphic images were obtained for up to 3 hours. FINDINGS: Prompt hepatic uptake is demonstrated. Small bowel uptake is seen at 15 minutes. Images obtained from to 3 hours demonstrate no evidence of gallbladder uptake. IMPRESSION: No evidence of gallbladder uptake after 3 hours. Findings may represent cystic duct obstruction and acute cholecystitis given findings on recent CT and ultrasound examination. Clinical correlation and follow-up recommended.
--- NOTE | 2018-03-21 15:50 | General Progress Note ---
Subjective - Review of Systems Service Date: 03/21/18 Events since last encounter: for transfer to tertiary facility due to weight of 354 lbs, equipment here may not be adequate mother understands reason Objective - Results Result Diagrams: 03/20/18 04:45 03/20/18 04:45 Recent Labs: Laboratory Last Values WBC 11.8 Th/cmm (4.8-10.8) H 03/20/18 04:45 RBC 5.74 Mil/cmm (4.30-5.70) H 03/20/18 04:45 Hgb 16.3 gm/dL (12-16) 03/20/18 04:45 Hct 48.7 % (41.0-60) 03/20/18 04:45 MCV 84.8 fl (80-99) 03/20/18 04:45 MCH 28.3 pg (26.0-30.0) 03/20/18 04:45 MCHC Differential 33.4 pg (28.0-36.0) 03/20/18 04:45 RDW 14.4 % (11.5-20.0) 03/20/18 04:45 Plt Count 262 Th/cmm (150-400) 03/20/18 04:45 MPV 8.5 fl 03/20/18 04:45 Neutrophils % 63.9 % (40.0-80.0) 03/20/18 04:45 Lymphocytes % 27.0 % (20.0-50.0) 03/20/18 04:45 Monocytes % 6.7 % (2.0-10.0) 03/20/18 04:45 Eosinophils % 1.9 % (0.0-5.0) 03/20/18 04:45 Basophils % 0.5 % (0.0-2.0) 03/20/18 04:45 PT 10.3 SECONDS (9.5-11.5) 03/20/18 04:45 INR 0.99 (0.5-1.4) 03/20/18 04:45 PTT (Actin FS) 28.4 SECONDS (26.0-38.0) 03/20/18 04:45 Sodium 139 mEq/L (136-145) 03/20/18 04:45 Potassium 3.6 mEq/L (3.5-5.1) 03/20/18 04:45 Chloride 105 mEq/L (98-107) 03/20/18 04:45 Carbon Dioxide 27.5 mEq/L (21.0-31.0) 03/20/18 04:45 Anion Gap 10.1 (7.0-16.0) 03/20/18 04:45 BUN 12 mg/dL (7-25) 03/20/18 04:45 Creatinine 1.0 mg/dL (0.7-1.3) 03/20/18 04:45 Est GFR ( Amer) > 60.0 ml/min (>90) 03/20/18 04:45 Est GFR (Non-Af Amer) > 60.0 ml/min 03/20/18 04:45 BUN/Creatinine Ratio 12.0 03/20/18 04:45 Glucose 93 mg/dL (70-105) 03/20/18 04:45 Calcium 9.2 mg/dL (8.6-10.3) 03/20/18 04:45 Total Bilirubin 1.1 mg/dL (0.3-1.0) H 03/20/18 04:45 AST 18 U/L (13-39) 03/20/18 04:45 ALT 24 U/L (7-52) 03/20/18 04:45 Alkaline Phosphatase 80 U/L (34-104) 03/20/18 04:45 Total Protein 7.4 gm/dL (6.0-8.3) 03/20/18 04:45 Albumin 4.2 gm/dL (4.2-5.5) 03/20/18 04:45 Globulin 3.2 gm/dL 03/20/18 04:45 Albumin/Globulin Ratio 1.3 (1.0-1.8) 03/20/18 04:45 Amylase 33 U/L (29-103) 03/20/18 04:45 Lipase 19 U/L (11-82) 03/20/18 04:45 Urine Source CLEAN C 03/19/18 10:54 Urine Color YELLOW 03/19/18 10:54 Urine Clarity CLEAR (CLEAR) 03/19/18 10:54 Urine pH 7.0 (4.6 - 8.0) 03/19/18 10:54 Ur Specific [place] 1.010 (1.005-1.030) 03/19/18 10:54 Urine Protein NEGATIVE mg/dL (NEGATIVE) 03/19/18 10:54 Urine Glucose (UA) NEGATIVE mg/dL (NEGATIVE) 03/19/18 10:54 Urine Ketones NEGATIVE mg/dL (NEGATIVE) 03/19/18 10:54 Urine Blood NEGATIVE (NEGATIVE) 03/19/18 10:54 Urine Nitrate NEGATIVE (NEGATIVE) 03/19/18 10:54 Urine Bilirubin NEGATIVE (NEGATIVE) 03/19/18 10:54 Urine Urobilinogen 0.2 E.U./dL (0.2 - 1.0) 03/19/18 10:54 Ur Leukocyte Esterase NEGATIVE (NEGATIVE) 03/19/18 10:54 Urine RBC 0-2 /hpf (0-5) H 03/19/18 10:54 Urine WBC 2-5 /hpf (0-5) 03/19/18 10:54 Ur Epithelial Cells FEW /lpf (FEW) 03/19/18 10:54 Urine Bacteria OCCASIONAL /hpf (NONE SEEN) 03/19/18 10:54 Urine Opiates Screen NEGATIVE (NEGATIVE) 03/19/18 10:52 Urine Methadone Screen NEGATIVE (NEGATIVE) 03/19/18 10:52 Ur Barbiturates Screen NEGATIVE (NEGATIVE) 03/19/18 10:52 Ur Tricyclics Screen NEGATIVE (NEGATIVE) 03/19/18 10:52 Ur Phencyclidine Scrn NEGATIVE (NEGATIVE) 03/19/18 10:52 Amphetamines Screen NEGATIVE (NEGATIVE) 03/19/18 10:52 U Methamphetamines Scrn NEGATIVE (NEGATIVE) 03/19/18 10:52 U Benzodiazepines Scrn NEGATIVE (NEGATIVE) 03/19/18 10:52 U Cocaine Metab Screen NEGATIVE (NEGATIVE) 03/19/18 10:52 U Cannabinoids Screen POSITIVE (NEGATIVE) H 03/19/18 10:52 - Physical Exam Vitals and I&O: Vital Signs Temp 97.4 F 03/21/18 15:44 Pulse 71 03/21/18 15:44 Resp 18 03/21/18 15:44 BP 115/57 03/21/18 15:44 Pulse Ox 100 03/21/18 15:44 Intake & Output 03/20/18 03/21/18 03/21/18 18:59 06:59 18:59 Intake Total 1200 1440 Balance 1200 1440 Weight (lbs) 161.434 kg 158.576 kg Intake: Intake, IV Amount 1200 1200 Ampicillin Sodium/ 200 200 Sulbactam 3 gm In Sodium Chloride 0.9% 100 ml @ 100 mls/hr IV Q6HR [facility] Rx #:[id number] D5-0.45NS 1,000 ml @ 100 1000 1000 mls/hr IV .Q10H [facility] Rx#: [id number] Oral 240 Other: # Voids 3 3 # Bowel Movements 0 1 Weight Source Bedscale Bedscale Active Medications: Current Medications Albuterol Sulfate (Albuterol 2.5mg/3ml Neb Ud) 2.5 mg HHN PRN PRN PRN Reason: asthma Dextrose/Sodium Chloride (D5-0.45ns) 1,000 mls @ 100 mls/hr IV .Q10H [facility] Stop: 05/18/18 10:59 Last Admin: 03/21/18 05:19 Dose: 100 mls/hr Ampicillin Sodium/Sulbactam (Sodium 3 gm/ Sodium Chloride) 100 mls @ 100 mls/ hr IV Q6HR [facility] Stop: 05/18/18 11:59 Last Admin: 03/21/18 11:00 Dose: 100 mls/hr Morphine Sulfate (Morphine) 2 mg IVP Q6H PRN PRN Reason: Abdominal Pain Stop: 05/18/18 11:01 Assessment/Plan - Problem List Patient Problems: All Active Problems RIGHT UPPER QUADRANT PAIN (Acute)
--- NOTE | 2018-03-22 00:08 | Discharge Summary ---
DATE OF DISCHARGE: 03/21/2018 DATE OF DISCHARGE: 03/21/2018 ID: A 28-year-old male PRINCIPAL DIAGNOSES: 1. Symptomatic cholelithiasis. 2. History of marijuana use. 3. Obesity. BRIEF STATEMENT FOR THE REASON FOR ADMISSION: A 28-year-old known case of cholelithiasis, presented to Emergency Room on 03/19/2018 for abdominal pain. The patient was admitted after the patient was having a diagnoses of cholecystitis and cholelithiasis. Please refer to my medical H and P for further information. HOSPITAL COURSE: The patient was admitted to Med/Surg floor. The patient was placed on n.p.o., IV fluid, IV antibiotic was started. GI and General Surgery consultation requested. The patient was seen by Dr. Staley who suggested to have HIDA scan as well. HIDA scan reported positive. Liver functions were normal along with lipase being normal. The patient did not have pain since the patient was admitted. The patient was seen by GI and according to them, no further workup was needed. I did have a discussion with the patient as well as a surgeon about the definite treatment plan. According to surgeon the patient is morbidly obese and the [facility] does not have enough equipment to perform this lili's surgery at this facility. The patient completely remained asymptomatic and the patient remained afebrile and hemodynamically stable. Decision was made that the patient should be discharged and go to nearest tertiary care Hospital where the patient can have surgical intervention. I did discuss with the patient in length about the test consultant's recommendation and stated that the patient is asymptomatic, so the patient can have surgery at tertiary care. The patient is completely verbalized, understood and agreed with the recommendations. The patient is discharged home in stable condition. The patient will be seen by his airline mechanic in 1-2 weeks. If recurrent symptoms, the patient should go to nearest tertiary [facility] Emergency Room. JOB# [id number]
--- NOTE | 2018-03-22 00:11 | Progress Notes ---
DATE: 03/21/2018 SUBJECTIVE: The patient seen and examined. The patient is asymptomatic. The patient has been seen by fitness consultant. OBJECTIVE: VITAL SIGNS: Temperature 97.3, pulse 64, respiratory rate 18, blood pressure 115/75. HEENT: Unremarkable. NECK: Supple, no JVD. HEART: Regular. CHEST AND LUNGS: Equal in expansion, no wheezing, no crackles. ABDOMEN: Soft. EXTREMITIES: No edema. NEUROLOGIC: Nonfocal. CLINICAL IMPRESSION: 1. Symptomatic cholelithiasis. 2. Obesity. 3. History of marijuana dependence. PLAN: Discharge to patient's home with instructions to go to a local tertiary care Emergency Room for surgical intervention if the patient has pain. Otherwise, see the patient's primary MD in 1-2 weeks. JOB# [id number]
[2018-03-22] MEDS: Ampicillin Sodium/Sulbactam 3 GM in Sodium Chloride 0.9% 100 ML IV SCH ×3 (05:00→17:24)
[2018-03-22] MEDS: D5-0.45NS 1,000 ML IV SCH (07:53)
--- NOTE | 2018-03-22 18:28 | Progress Notes ---
DATE: 03/22/2018 SUBJECTIVE: This patient was discharged to home after I did have discussion with surgeon, but subsequently the patient's mother came and she started yelling at me and threatening me to ana because the patient has abnormal test. The patient has no complaint of chest pain, shortness of breath, abdominal pain, nausea, vomiting, fever, chills, cough, headache at all. The patient is waiting to have this surgery done, but according to surgeon, the patient is 365 pound and no enough equipment to perform surgery here in this facility. The patient and mother prefers to have surgery while he is in the hospital. PHYSICAL EXAMINATION: On today's exam; VITAL SIGNS: Temperature 97, pulse is 71, respiratory rate 18, and blood pressure 138/58. HEENT: No facial asymmetry. NECK: Supple, no JVD. HEART: Regular, no murmur. CHEST AND LUNGS: Equal in expansion, no wheezing, no crackles. ABDOMEN: Soft. No guarding, no rigidity. Bowel sounds are present. No palpable mass. EXTREMITIES: No edema. NEUROLOGIC: Nonfocal. LABORATORY DATA: HIDA scan performed on 03/19/[address] Marin, no evidence of gallbladder uptake after three hours, consistent with cystic duct obstruction and acute cholecystitis. The patient has no symptoms at this time. The patient's CT scan of the abdomen and pelvis have numerous nonobstructive renal calculi. CLINICAL IMPRESSION: 1. A 2 cm gallstone in the region of the gallbladder neck with a positive HIDA scan. The patient has no signs and symptoms of acute cholecystitis with normal liver function tests, normal lipase. 2. Nonobstructive renal calculi with normal urinalysis, with no abdominal pain. 3. Morbid obesity. 4. History of marijuana dependence. PLAN: Transfer this patient to higher level of care as per surgeon's recommendation. Meanwhile, continue current treatment plan as ordered. JOB# [id number]
== END 2018-03-22 21:00 | disposition short-term general hospital (02) ==
LOC: ER 07:40 → MSI 11:05
PROVIDERS: ADMIT Internal Medicine; ATTEND Internal Medicine
DX: K80.20 Calculus of gallbladder without cholecystitis without obstruction (principal); E66.01 Morbid (severe) obesity due to excess calories; R65.10 Systemic inflammatory response syndrome (SIRS) of non-infectious origin without acute organ dysfunction; Z68.43 Body mass index [BMI] 50.0-59.9, adult; J45.909 Unspecified asthma, uncomplicated; F17.210 Nicotine dependence, cigarettes, uncomplicated; N20.0 Calculus of kidney
CPT/HCPCS: 36415-UA; 76705-TC; 78226-TC; 80053-TC; 80307; 81001-TC; 82150-TC; 83690-TC; 85025-TC; 85610-TC; 85730-TC; 96374; 96375; A9537; J0295; J0696; J1885; J7030; Q0162; Q9967